=== PATIENT | female | born 1980 | race Caucasian/White ===

== ENCOUNTER 2017-10-28 14:00 | Emergency (ER) | payer SELFPAY ==
[2017-10-28 14:19] LABS: BASOPHILS % 0.4 (0.0-1.5); EOSINOPHILS % 0.2 % (0.0-6.8); MEAN CORPUSCULAR HEMOGLOBIN 28.2 pg (28.0-34.0); MEAN CORPUSCULAR VOLUME 91.4 fl (80.0-100.0); NEUTROPHILS # 6.2 # k/uL (1.4-7.7)
[2017-10-28] MEDS: NALOXONE HCL 2 MG/2 ML IVP ONE (14:22)
[2017-10-28] MEDS: 0.9 % SODIUM CHLORIDE 1,000 ML IV ONE (14:22)
[2017-10-28 14:34] LABS: eGFR (African) > 60; eGFR (Non-African) > 60
[2017-10-28] MEDS ORDERED: FLUMAZENIL 0.1 MG/ML 5ML VIAL IV SCH (15:00)
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
[2017-10-28] MEDS: FLUMAZENIL 0.1 MG/ML 5ML VIAL IV ONE (15:38)
[2017-10-28 15:42] VITALS: BP 148/99
[2017-10-29 07:45] LABS: CANNABINOIDS NON NEGATIVE ng/mL (< 50); METHYLENEDIOXYMETHAMPHETAMINE NEGATIVE ng/mL (<500)
[2017-10-29 07:47] LABS: APPEARANCE,URINE CLOUDY (CLEAR); COLOR,URINE YELLOW (YELLOW); OCCULT BLOOD,URINE NEGATIVE (NEGATIVE)
== END 2017-10-28 15:30 | disposition home or self-care (01) ==
LOC: ED 14:00
DX: T50.904A Poisoning by unspecified drugs, medicaments and biological substances, undetermined, initial encounter (principal); Y92.9 Unspecified place or not applicable
CPT/HCPCS: 36415; 80053; 80320; 80377; 81002; 85025; J2310; J7030; 96365; 96375; 99283; G0480; G0481; S1016